=== PATIENT | male | born 1945 | race Hispanic/Latino ===

== ENCOUNTER 2017-02-03 07:48 | Emergency (ER) | payer MEDICARE, OTHER ==
--- NOTE | 2017-02-03 09:53 | Cat Scan Report ---
CT scan of head without IV contrast: History: Altered mental status. Findings: There is a large acute right right convexity subdural noted. The width of the subdural is approximately 2 cm. Midline shift is 0.85 mm. No evidence of hydronephrosis. Chronic left basal ganglia infarct. Normal brainstem and cerebellum. No fracture of the calvarium. Impression: Right acute parietal convexity subdural. Dr. DAVID ELDRIDGE M.D. was informed of the findings at 9:40 AM on 02/03/17. Arturo..
--- NOTE | 2017-02-03 10:07 | Emergency Department Report ---
ED General Adult HPI - General Chief complaint: Altered Mental Status Time Seen by Provider: 02/03/17 10:04 Source: patient, family, RN notes reviewed, old records reviewed Limitations: Physical Limitation - History of Present Illness Initial comments: This is a 71-year-old male, has a history of paroxysmal A. fib, currently on Coumadin therapy for stroke prophylaxis, history of ischemic stroke with residual right-sided hemiparesis. Patient is brought to the ER from outpatient CT scan for acute subdural hematoma. It is nontraumatic. As per family, patient has been having nonspecific decline in neurologic and functional status over the past few days. The symptoms are constant. I do not have exacerbating or relieving factors, patient and family cannot recall his last Coumadin ingestion, the patient denies pain. -: Gradual Consistency: constant Improves with: none Worsens with: none Associated Symptoms: confusion - Related Data Previous Rx's Medication Instructions Recorded Last Taken Type Aspirin [Aspirin BABY CHEW TAB] 81 mg PO QDAY tab.chew 12/29/15 Unknown Rx FLUoxetine [PROzac] 20 mg PO QDAY capsule 12/29/15 Unknown Rx Ranitidine HCl [Zantac 150 MG TAB] 150 mg PO BID #1 tablet 12/29/15 Unknown Rx Rosuvastatin (Nf) [Crestor] 20 mg PO QHS #1 tablet 12/29/15 Unknown Rx Allergies Allergy/AdvReac Type Severity Reaction Status Date / Time No Known Allergies Allergy Verified 12/16/15 17:36 ED Review of Systems ROS: Stated complaint: Other details as noted in HPI Constitutional: malaise Eyes: denies: eye discharge ENT: denies: throat pain Respiratory: denies: cough Cardiovascular: denies: chest pain Gastrointestinal: denies: vomiting Genitourinary: as per HPI Musculoskeletal: arthralgia Skin: denies: lesions Neurological: confusion Psychiatric: as per HPI ED Past Medical Hx - Past Medical History Hx CVA: Yes (12/10/15) Hx Arthritis: No - Social History Smoking Status: Never Smoker - Medications Home Medications: Home Medications Medication Instructions Recorded Confirmed Last Taken Type Aspirin [Aspirin BABY CHEW TAB] 81 mg PO QDAY tab.chew 12/29/15 Unknown Rx FLUoxetine [PROzac] 20 mg PO QDAY capsule 12/29/15 Unknown Rx Ranitidine HCl [Zantac 150 MG TAB] 150 mg PO BID #1 tablet 12/29/15 Unknown Rx Rosuvastatin (Nf) [Crestor] 20 mg PO QHS #1 tablet 12/29/15 Unknown Rx ED Physical Exam - General Limitations: Altered Mental Status General appearance: alert, in no apparent distress - Head Head exam: Present: atraumatic, normocephalic - Eye Eye exam: Present: normal appearance, EOMI. Absent: nystagmus - ENT ENT exam: Present: normal exam, normal orophraynx, mucous membranes moist, normal external ear exam - Neck Neck exam: Present: normal inspection, full ROM. Absent: tenderness, meningismus - Respiratory Respiratory exam: Present: normal lung sounds bilaterally. Absent: respiratory distress, chest wall tenderness - Cardiovascular Cardiovascular Exam: Present: regular rate, normal rhythm, normal heart sounds. Absent: systolic murmur, diastolic murmur, rubs, gallop - GI/Abdominal GI/Abdominal exam: Present: soft, normal bowel sounds. Absent: distended, tenderness, guarding, rebound, rigid, pulsatile mass - Rectal Rectal exam: Present: deferred - Extremities Exam Extremities exam: Present: normal inspection, normal capillary refill. Absent: full ROM (there is hemiparesis in the right upper extremity and right lower extremity), calf tenderness - Back Exam Back exam: Present: normal inspection - Neurological Exam Neurological exam: Present: alert, motor sensory deficit (hemiparesis in the right upper and right lower extremity), other (there is no facial droop. The tongue is midline. There is 5 out of 5 strength in the left upper, left lower extremity) - Psychiatric Psychiatric exam: Present: normal affect, normal mood - Skin Skin exam: Present: warm, dry, intact, normal color. Absent: rash ED Course Vital Signs 02/03/17 02/03/17 02/03/17 10:40 10:41 10:43 Temperature Pulse Rate 68 63 66 Respiratory 19 15 17 Rate Blood Pressure Blood Pressure [Left] O2 Sat by Pulse 96 96 94 Oximetry 02/03/17 02/03/17 02/03/17 10:45 10:47 10:49 Temperature Pulse Rate 63 65 64 Respiratory 19 19 17 Rate Blood Pressure Blood Pressure [Left] O2 Sat by Pulse 94 91 95 Oximetry 02/03/17 02/03/17 02/03/17 10:51 10:53 10:55 Temperature Pulse Rate 66 63 65 Respiratory 19 16 16 Rate Blood Pressure Blood Pressure [Left] O2 Sat by Pulse 95 96 97 Oximetry 02/03/17 02/03/17 02/03/17 10:57 10:59 11:01 Temperature Pulse Rate 64 67 65 Respiratory 17 22 17 Rate Blood Pressure Blood Pressure [Left] O2 Sat by Pulse 96 96 95 Oximetry 02/03/17 02/03/17 02/03/17 11:03 11:05 11:07 Temperature Pulse Rate 63 60 63 Respiratory 14 19 20 Rate Blood Pressure Blood Pressure [Left] O2 Sat by Pulse 94 96 95 Oximetry 02/03/17 02/03/17 02/03/17 11:09 11:11 11:13 Temperature Pulse Rate 61 63 63 Respiratory 18 18 17 Rate Blood Pressure Blood Pressure [Left] O2 Sat by Pulse 95 96 95 Oximetry 02/03/17 02/03/17 02/03/17 11:15 11:17 11:19 Temperature Pulse Rate 63 62 61 Respiratory 20 19 18 Rate Blood Pressure Blood Pressure [Left] O2 Sat by Pulse 95 95 95 Oximetry 02/03/17 02/03/17 02/03/17 11:21 11:23 11:26 Temperature 98.2 F Pulse Rate 63 62 64 Respiratory 14 20 Rate Blood Pressure Blood Pressure 123/64 [Left] O2 Sat by Pulse 95 96 Oximetry 02/03/17 02/03/17 02/03/17 12:11 13:19 13:21 Temperature 98.2 F Pulse Rate 71 69 Respiratory 14 8 L Rate Blood Pressure Blood Pressure [Left] O2 Sat by Pulse 96 96 Oximetry 02/03/17 02/03/17 02/03/17 13:23 13:25 13:27 Temperature Pulse Rate 69 69 64 Respiratory 23 13 14 Rate Blood Pressure Blood Pressure [Left] O2 Sat by Pulse 96 96 97 Oximetry 02/03/17 02/03/17 02/03/17 13:29 13:31 13:33 Temperature Pulse Rate 68 59 L 62 Respiratory 13 26 H 21 Rate Blood Pressure Blood Pressure [Left] O2 Sat by Pulse 96 96 96 Oximetry 02/03/17 02/03/17 02/03/17 13:35 13:37 13:39 Temperature Pulse Rate 66 69 67 Respiratory 22 17 18 Rate Blood Pressure Blood Pressure [Left] O2 Sat by Pulse 96 96 95 Oximetry 02/03/17 02/03/17 02/03/17 13:41 13:43 13:45 Temperature Pulse Rate 66 64 65 Respiratory 11 L 16 14 Rate Blood Pressure Blood Pressure [Left] O2 Sat by Pulse 96 96 96 Oximetry 02/03/17 02/03/17 02/03/17 13:47 13:49 13:51 Temperature Pulse Rate 69 67 68 Respiratory 20 17 21 Rate Blood Pressure Blood Pressure [Left] O2 Sat by Pulse 96 94 96 Oximetry 02/03/17 02/03/17 02/03/17 13:53 13:54 13:55 Temperature Pulse Rate 64 65 65 Respiratory 18 15 19 Rate Blood Pressure Blood Pressure [Left] O2 Sat by Pulse 95 96 96 Oximetry 02/03/17 02/03/17 02/03/17 13:57 13:59 14:01 Temperature Pulse Rate 65 64 65 Respiratory 11 L 24 22 Rate Blood Pressure Blood Pressure [Left] O2 Sat by Pulse 96 96 96 Oximetry 02/03/17 02/03/17 02/03/17 14:03 14:05 14:07 Temperature Pulse Rate 67 64 66 Respiratory 13 19 20 Rate Blood Pressure Blood Pressure [Left] O2 Sat by Pulse 95 96 95 Oximetry 02/03/17 02/03/17 02/03/17 14:09 14:11 14:13 Temperature Pulse Rate 69 67 67 Respiratory 15 23 20 Rate Blood Pressure Blood Pressure [Left] O2 Sat by Pulse 97 96 96 Oximetry 02/03/17 02/03/17 02/03/17 14:15 14:17 14:19 Temperature Pulse Rate 67 68 65 Respiratory 16 16 22 Rate Blood Pressure Blood Pressure [Left] O2 Sat by Pulse 95 96 95 Oximetry 02/03/17 02/03/17 02/03/17 14:21 14:23 14:25 Temperature Pulse Rate 68 67 73 Respiratory 17 19 12 Rate Blood Pressure Blood Pressure [Left] O2 Sat by Pulse 96 96 95 Oximetry 02/03/17 02/03/17 02/03/17 14:27 14:29 14:31 Temperature Pulse Rate 67 66 68 Respiratory 21 15 19 Rate Blood Pressure Blood Pressure [Left] O2 Sat by Pulse 95 96 96 Oximetry 02/03/17 02/03/17 02/03/17 14:33 14:35 14:37 Temperature Pulse Rate 67 69 67 Respiratory 10 L 17 21 Rate Blood Pressure Blood Pressure [Left] O2 Sat by Pulse 96 97 96 Oximetry 02/03/17 02/03/17 02/03/17 14:39 14:41 14:43 Temperature Pulse Rate 73 70 71 Respiratory 18 10 L 24 Rate Blood Pressure Blood Pressure [Left] O2 Sat by Pulse 95 95 96 Oximetry 02/03/17 02/03/17 02/03/17 14:45 14:47 14:49 Temperature Pulse Rate 71 72 72 Respiratory 20 22 20 Rate Blood Pressure Blood Pressure [Left] O2 Sat by Pulse 96 96 94 Oximetry 02/03/17 02/03/17 02/03/17 14:51 14:53 14:55 Temperature Pulse Rate 71 72 72 Respiratory 16 20 32 H Rate Blood Pressure Blood Pressure [Left] O2 Sat by Pulse 96 95 97 Oximetry 02/03/17 02/03/17 02/03/17 14:58 15:15 15:17 Temperature Pulse Rate 63 63 Respiratory 18 18 15 Rate Blood Pressure Blood Pressure [Left] O2 Sat by Pulse 97 94 94 Oximetry 02/03/17 02/03/17 02/03/17 15:19 15:21 15:23 Temperature Pulse Rate 62 64 64 Respiratory 17 30 H 18 Rate Blood Pressure Blood Pressure [Left] O2 Sat by Pulse 94 94 94 Oximetry 02/03/17 02/03/17 02/03/17 15:25 15:27 15:29 Temperature Pulse Rate 61 62 61 Respiratory 17 14 17 Rate Blood Pressure Blood Pressure [Left] O2 Sat by Pulse 94 93 94 Oximetry 02/03/17 02/03/17 02/03/17 15:31 15:33 15:35 Temperature Pulse Rate 60 61 60 Respiratory 15 17 18 Rate Blood Pressure Blood Pressure [Left] O2 Sat by Pulse 96 95 94 Oximetry 02/03/17 02/03/17 02/03/17 15:37 15:39 15:41 Temperature Pulse Rate 56 L 57 L 58 L Respiratory 18 20 14 Rate Blood Pressure Blood Pressure [Left] O2 Sat by Pulse 93 96 95 Oximetry 02/03/17 02/03/17 02/03/17 15:43 15:45 15:47 Temperature Pulse Rate 58 L 57 L 56 L Respiratory 17 17 18 Rate Blood Pressure Blood Pressure [Left] O2 Sat by Pulse 94 94 91 Oximetry 02/03/17 02/03/17 02/03/17 15:49 15:51 15:53 Temperature Pulse Rate 56 L 59 L 56 L Respiratory 9 L 18 14 Rate Blood Pressure Blood Pressure [Left] O2 Sat by Pulse 94 96 94 Oximetry 02/03/17 02/03/17 02/03/17 15:55 15:57 15:59 Temperature Pulse Rate 56 L 59 L 66 Respiratory 12 12 7 L Rate Blood Pressure Blood Pressure [Left] O2 Sat by Pulse 94 95 94 Oximetry 02/03/17 02/03/17 02/03/17 16:01 16:03 16:05 Temperature Pulse Rate 61 67 63 Respiratory 9 L 18 15 Rate Blood Pressure Blood Pressure [Left] O2 Sat by Pulse 96 95 95 Oximetry 02/03/17 02/03/17 02/03/17 16:07 16:09 16:11 Temperature Pulse Rate 73 62 68 Respiratory 11 L 23 15 Rate Blood Pressure Blood Pressure [Left] O2 Sat by Pulse 95 94 94 Oximetry 02/03/17 02/03/17 02/03/17 16:13 16:15 16:17 Temperature Pulse Rate 61 62 64 Respiratory 14 18 23 Rate Blood Pressure Blood Pressure [Left] O2 Sat by Pulse 95 95 96 Oximetry 02/03/17 02/03/17 02/03/17 16:19 16:21 16:23 Temperature Pulse Rate 71 69 65 Respiratory 21 15 18 Rate Blood Pressure Blood Pressure [Left] O2 Sat by Pulse 96 96 92 Oximetry 02/03/17 02/03/17 02/03/17 16:25 16:27 16:29 Temperature Pulse Rate 62 66 62 Respiratory 10 L 21 18 Rate Blood Pressure Blood Pressure [Left] O2 Sat by Pulse 95 94 96 Oximetry 02/03/17 02/03/17 02/03/17 16:31 16:33 16:35 Temperature Pulse Rate 67 62 65 Respiratory 21 20 19 Rate Blood Pressure Blood Pressure [Left] O2 Sat by Pulse 94 96 96 Oximetry 02/03/17 02/03/17 02/03/17 16:37 16:39 16:41 Temperature Pulse Rate 67 62 61 Respiratory 19 18 16 Rate Blood Pressure 129/64 129/64 129/64 Blood Pressure [Left] O2 Sat by Pulse 96 96 95 Oximetry 02/03/17 02/03/17 02/03/17 16:43 16:45 16:47 Temperature Pulse Rate 64 63 67 Respiratory 15 13 10 L Rate Blood Pressure 129/64 129/64 129/64 Blood Pressure [Left] O2 Sat by Pulse 95 96 93 Oximetry 02/03/17 02/03/17 02/03/17 16:49 16:51 16:53 Temperature Pulse Rate 65 68 64 Respiratory 12 15 12 Rate Blood Pressure 129/64 129/64 129/64 Blood Pressure [Left] O2 Sat by Pulse 96 94 95 Oximetry - Reevaluation(s) Reevaluation #1: 02/03/17 11:36 Patient is experiencing a head bleed in the context of Coumadin toxicity. This hospital does not have neurosurgery, neurology, neuro critical care available for management and consultation. It is therefore in the patient's best interest to be transferred to another hospital that can definitively manage this patient. Reevaluation #2: 02/03/17 14:55 Patient reevaluated multiple times while in the department. Protecting his airway, repeat GCS unchanged, awaiting transportation. ED Medical Decision Making - Lab Data Result diagrams: 02/03/17 10:20 02/03/17 10:20 Vital Signs 02/03/17 02/03/17 02/03/17 10:40 10:41 10:43 Temperature Pulse Rate 68 63 66 Respiratory 19 15 17 Rate Blood Pressure [Left] O2 Sat by Pulse 96 96 94 Oximetry 02/03/17 02/03/17 02/03/17 10:45 10:47 10:49 Temperature Pulse Rate 63 65 64 Respiratory 19 19 17 Rate Blood Pressure [Left] O2 Sat by Pulse 94 91 95 Oximetry 02/03/17 02/03/17 02/03/17 10:51 10:53 10:55 Temperature Pulse Rate 66 63 65 Respiratory 19 16 16 Rate Blood Pressure [Left] O2 Sat by Pulse 95 96 97 Oximetry 02/03/17 02/03/17 02/03/17 10:57 10:59 11:01 Temperature Pulse Rate 64 67 65 Respiratory 17 22 17 Rate Blood Pressure [Left] O2 Sat by Pulse 96 96 95 Oximetry 02/03/17 02/03/17 02/03/17 11:03 11:05 11:07 Temperature Pulse Rate 63 60 63 Respiratory 14 19 20 Rate Blood Pressure [Left] O2 Sat by Pulse 94 96 95 Oximetry 02/03/17 02/03/17 02/03/17 11:09 11:11 11:13 Temperature Pulse Rate 61 63 63 Respiratory 18 18 17 Rate Blood Pressure [Left] O2 Sat by Pulse 95 96 95 Oximetry 02/03/17 02/03/17 02/03/17 11:15 11:17 11:19 Temperature Pulse Rate 63 62 61 Respiratory 20 19 18 Rate Blood Pressure [Left] O2 Sat by Pulse 95 95 95 Oximetry 02/03/17 02/03/17 02/03/17 11:21 11:23 11:26 Temperature 98.2 F Pulse Rate 63 62 64 Respiratory 14 20 Rate Blood Pressure 123/64 [Left] O2 Sat by Pulse 95 96 Oximetry - Radiology Data Radiology results: report reviewed, image reviewed Noncontrast CT scan of the brain demonstrates right-sided acute subdural bleed, 2 cm in thickness, shift of 0.85 mm. - Medical Decision Making Differential diagnosis: Acute nontraumatic subdural hemorrhage Assessment and plan: 71-year-old male with hemorrhagic subdural, no recent history of trauma within the past 4 weeks, GCS of 15, protecting airway. Patient will be given vitamin K, 10 mg IV, four factor prothrombin complex concentrate, 1 g of Keppra, and two units of fresh frozen plasma. Made multiple phone calls through [facility] and the [facility] transfer line, discussed the case with multiple physicians, ultimately, patient was accepted to [facility] by the neuro seat installer, Dr. Caruso Critical Care Time: Yes Critical care time in (mins) excluding proc time.: 60 Critical care attestation.: If time is entered above; I have spent that time in minutes in the direct care of this critically ill patient, excluding procedure time. ED Disposition Clinical Impression: Subdural hematoma Disposition: [id number] GEN HOSP IP Is pt being admited?: No Does the pt Need Aspirin: No Condition: Critical Referrals: LISA STILES MD [Primary Care Provider] - 3-5 Days
[2017-02-03 10:27] LABS: Mean Corpuscular HGB Conc 34 % (32-34); Mean Corpuscular Hemoglobin 33 pg (28-32); Mean Corpuscular Volume 98 fl (84-94); Platelet Count 157 K/mm3 (140-440); Red Blood Count 4.19 M/mm3 (3.65-5.03); Red Cell Distribution Width 13.3 % (13.2-15.2); White Blood Count 10.6 K/mm3 (4.5-11.0)
[2017-02-03 10:39] LABS: INR 2.16 (0.87-1.13)
[2017-02-03 10:40] LABS: Partial Thromboplastin Time 46.4 Sec. (24.2-36.6)
[2017-02-03 10:44] LABS: Anion Gap 15 mmol/L; BUN/Creatinine Ratio 23; Blood Urea Nitrogen 14 mg/dL (9-20); Calcium 9.5 mg/dL (8.4-10.2); Carbon Dioxide 28 mmol/L (22-30); Chloride 101.3 mmol/L (98-107); Glucose 86 mg/dL (75-100); Sodium 139 mmol/L (137-145)
[2017-02-03] MEDS ORDERED: NACL 0.9% 500 ML 500 ML IV ONE (10:52)
[2017-02-03] MEDS ORDERED: KEPPRA 1,000 MG/NS 0.75% 100ML 1,000 MG/100 ML BAG IV ONE (11:34)
[2017-02-03] MEDS ORDERED: KCENTRA IV ONE (12:00)
[2017-02-03] MEDS ORDERED: VITAMIN K (ADULT ONLY) 10 MG in NACL 0.9% 50 ML IV ONE (12:00)
[2017-02-03] MEDS ORDERED: STERILE WATER IV ONE (12:00)
[2017-02-03 16:56] VITALS: BP 129/64
== END 2017-02-03 18:34 | disposition short-term general hospital (02) ==
LOC: CT 07:48 → ED 07:48 → EDSTATUS 08:00 → ED 18:34
DX: R41.82 Altered mental status, unspecified (principal); R51 Headache; I62.00 Nontraumatic subdural hemorrhage, unspecified; I63.8 Other cerebral infarction; G81.91 Hemiplegia, unspecified affecting right dominant side; Z79.82 Long term (current) use of aspirin
CPT/HCPCS: 36415; 70450; 80048; 85027; 85610; 85730; 86900; 86901; 93005; 93010; 96365; 96375; 99291; J1953; J3430; J7195; P9017